=== PATIENT | male | born 1965 | race Hispanic/Latino ===

== ENCOUNTER 2018-10-03 02:36 | Emergency (ER) | payer OTHER ==
--- NOTE | 2018-10-03 08:06 | RAD ---
EXAM: XR Ankle Rt 3 View STANDARD PROVIDED CLINICAL HISTORY: Pain FINDINGS: There is no evidence for fracture or other acute osseous abnormality. Alignment appears anatomic. Nichole nt spaces appear preserved. IMPRESSION: No evidence for an acute osseous abnormality. If there is persistent clinical concern, conservative m anagement and follow-up imaging advised.
== END 2018-10-03 04:03 | disposition home or self-care (01) ==
LOC: ERS 02:36
DX: S93.401A Sprain of unspecified ligament of right ankle, initial encounter (principal); L02.415 Cutaneous abscess of right lower limb; W17.89XA Other fall from one level to another, initial encounter

== ENCOUNTER 2024-11-11 17:32 | Emergency (ER) | payer OTHER ==
[2024-11-11 20:19] LABS: CAUTI Indications for Culture Dysuria,urgency,freq; Glucose, Urine (Dipstick) Normal (Negative); Leukocyte Negative Leu/uL (Negative); Protein, Urine (Dipstick) 200 mg/dL (Neg-Trace); RBC/HPF 0-3 HPF (0-3); Specific Gravity, Urine 1.029 (1.002-1.036); WBC/HPF 0-3 HPF (0-3)
[2024-11-11 20:21] LABS: Bacteria/HPF 1+ HPF (None Seen)
[2024-11-11 20:22] LABS: Urine Culture Reflex No No
[2024-11-11 20:30] LABS: #Basophils 0.06 10x3/uL (0.0-0.2); #Eosinophils 0.09 10x3/uL (0.0-0.7); #Monocytes 0.76 10x3/uL (0.11-0.59); #Neutrophils 6.62 10x3/uL (1.40-6.50); %Basophils 0.6 % (0.0-1.0); %Eosinophils 0.9 % (0.0-10.0); %Lymphocytes 23.5 % (21.0-51.0); %Monocytes 7.6 % (0.0-10.0); %Neutrophils 66.4 % (42.0-75.0); Hematocrit 48.8 % (42.0-52.0); Hemoglobin 15.5 g/dL (14.0-18.0); Mean Corpuscular Hemoglobin 24.7 pg (27.0-31.0); Mean Corpuscular Volume 77.8 fL (78.0-98.0); Platelet Count 309 10x3/uL (130-400); Red Blood Cell (RBC) Count 6.27 mill/uL (4.70-6.10); White Blood Cell (WBC) Count 9.97 10x3/uL (4.8-10.8)
[2024-11-11 20:51] LABS: ALT (SGPT) 17 U/L (Less than 45); AST (SGOT) 16 U/L (11-34); Albumin 3.9 g/dL (3.1-4.5); Alkaline Phosphatase 104 U/L (40-110); Anion Gap 16 mmol/L (10-20); BUN (Urea Nitrogen) 11 mg/dL (8.4-25.7); Bilirubin, Total 0.6 mg/dL (0.3-1.2); Calc. Creatinine Clearance 0 mL/min (70-130); Calcium 10.1 mg/dL (7.8-10.44); Carbon Dioxide 24 mmol/L (22-29); Chloride 101 mmol/L (98-107); Globulin 4.3 g/dL (2.4-3.5); Glucose 143 mg/dL (70-105); Lipase 30 U/L (8-78); Potassium 4.6 mmol/L (3.5-5.1); Sodium 136 mmol/L (136-145)
== END 2024-11-11 21:30 | disposition home or self-care (01) ==
LOC: ERS 17:32
DX: K21.9 Gastro-esophageal reflux disease without esophagitis (principal); R11.2 Nausea with vomiting, unspecified; R10.13 Epigastric pain; E11.9 Type 2 diabetes mellitus without complications; Z79.82 Long term (current) use of aspirin; Z79.4 Long term (current) use of insulin; Z79.899 Other long term (current) drug therapy
CPT/HCPCS: 36415; 80053; 81001; 83690; 85025; 99283

== ENCOUNTER 2025-03-28 13:46 | Outpatient (CLI) | payer OTHER | END 2025-03-28 13:47 | disposition home or self-care (01) | LOC: LABBT 13:46 | PROVIDERS: ATTEND Thoracic Surgery (Cardiothoracic Vascular Surgery) | DX: Z01.818 Encounter for other preprocedural examination (principal); I25.10 Atherosclerotic heart disease of native coronary artery without angina pectoris | CPT/HCPCS: 71046 ==

== ENCOUNTER 2025-03-28 14:00 | Inpatient (IN) | payer OTHER ==
[2025-03-28 14:16] VITALS: BMI 44.2
[2025-03-28 15:03] LABS: #Basophils 0.04 10x3/uL (0.0-0.2); #Eosinophils 0.31 10x3/uL (0.0-0.7); #Monocytes 0.70 10x3/uL (0.11-0.59); #Neutrophils 4.81 10x3/uL (1.40-6.50); %Basophils 0.5 % (0.0-1.0); %Eosinophils 3.8 % (0.0-10.0); %Lymphocytes 28.1 % (21.0-51.0); %Monocytes 8.5 % (0.0-10.0); %Neutrophils 58.3 % (42.0-75.0); Hematocrit 43.9 % (42.0-52.0); Hemoglobin 13.4 g/dL (14.0-18.0); Mean Corpuscular Hemoglobin 24.5 pg (27.0-31.0); Mean Corpuscular Volume 80.1 fL (78.0-98.0); Platelet Count 246 10x3/uL (130-400); Red Blood Cell (RBC) Count 5.48 mill/uL (4.70-6.10); White Blood Cell (WBC) Count 8.25 10x3/uL (4.8-10.8)
[2025-03-28 15:19] LABS: Anion Gap 12 mmol/L (10-20); BUN (Urea Nitrogen) 13 mg/dL (8.4-25.7); Calc. Creatinine Clearance 0 mL/min (70-130); Calcium 9.3 mg/dL (7.8-10.44); Carbon Dioxide 24 mmol/L (22-29); Chloride 104 mmol/L (98-107); Glucose 224 mg/dL (70-105); Potassium 4.3 mmol/L (3.5-5.1); Sodium 136 mmol/L (136-145)
[2025-03-29] MEDS ORDERED: Heparin 10,000 UNITS/1 ML VIAL 30,000 UNITS in Sodium Chloride 0.9% 1,000 ML FS SCH (07:00)
[2025-03-29] MEDS ORDERED: Rocuronium Bromide 10 MG/ML (10ML VIAL) ONE ×4 (07:03→08:30)
[2025-03-29] MEDS ORDERED: Lidocaine 1% PF 5 ML VIAL ONE (07:03)
[2025-03-29] MEDS ORDERED: PROPOFOL 20 ML ONE (07:03)
[2025-03-29] MEDS ORDERED: Calcium Chloride 1 GM/10 ML Abboject SYRINGE ONE (07:48)
[2025-03-29] MEDS ORDERED: PROPOFOL 200 MG/20 ML VIAL ONE (07:48)
[2025-03-29] MEDS ORDERED: Heparin 30,000 units/30 ml VIAL ONE (07:48)
[2025-03-29] MEDS ORDERED: Cardioplegic Soln 1,000 ML BAG ONE (07:48)
[2025-03-29] MEDS ORDERED: PHENYLEPHRINE-NS 100 MCG/ML 10 ML SYRINGE ONE ×2 (07:48→09:21)
[2025-03-29] MEDS ORDERED: Thrombin 5000 UNITS/5 ML VIAL ONE (07:48)
[2025-03-29] MEDS ORDERED: Ondansetron PF 4 MG/2 ML Vial ONE (07:48)
[2025-03-29] MEDS ORDERED: Heparin 5,000 UNITS/ML VIAL ONE (07:48)
[2025-03-29] MEDS ORDERED: fentaNYL PF 100 MCG/2 ML SYRINGE ONE (08:26)
[2025-03-29] MEDS ORDERED: Heparin 10,000 UNITS/ 10 ML VIAL ONE (08:35)
[2025-03-29] MEDS ORDERED: Potassium Chloride 20 MEQ (100 mL) BAG IVPB PRN (12:28)
[2025-03-29] MEDS ORDERED: Nitroglycerin 50 MG/250 ML BOT 250 ML IVPB PRN (12:28)
[2025-03-29] MEDS ORDERED: hydrALAZINE 20 MG/ML VIAL SLOW IVP PRN (12:28)
[2025-03-29] MEDS ORDERED: Bisacodyl 10 MG SUPP PR PRN (12:28)
[2025-03-29] MEDS ORDERED: Acetaminophen 325 MG TAB PO PRN (12:28)
[2025-03-29] MEDS ORDERED: Ondansetron PF 4 MG/2 ML Vial IVP PRN (12:28)
[2025-03-29] MEDS ORDERED: Albumin 5% 12.5 GM (250 mL) BOT IVPB PRN ×2 (12:28)
[2025-03-29 12:30] LABS: Actual Bicarbonate (HCO3a) 22.7 mEq/L (22-28); Base Excess (BEa) -1.7 mEq/L (-2.0 to +3.0); CO2 Tension 37.3 mmHg (35.0-45.0); Calcium, Ionized (arterial) 1.11 mmol/L (1.12-1.30); Hematocrit-ABG 38 % (42.0-52.0); Hemoglobin (Hb) 12.9 g/dL (14.0-18.0); O2 Tension (PaO2), arterial 62.7 mmHg (80.0-100.0); Potassium - ABG Lab 3.90 mmol/L (3.70-5.30); pH, Arterial 7.402 (7.35-7.45)
[2025-03-29 12:32] LABS: ALV-art Gradient 175.875 mmHg (0-20); Puncture Site Arterial Line
[2025-03-29] MEDS ORDERED: Norepinephrine 8 MG/0.9% NS 250 ML IVPB PRN (12:36)
[2025-03-29] MEDS ORDERED: Glucagon 1 MG/ML KIT SC PRN (12:45)
[2025-03-29] MEDS ORDERED: Dextrose 50% Abboject 50 ML SYRINGE SLOW IVP PRN (12:45)
[2025-03-29 12:48] LABS: #Basophils 0.07 10x3/uL (0.0-0.2); #Eosinophils 0.24 10x3/uL (0.0-0.7); #Monocytes 1.22 10x3/uL (0.11-0.59); #Neutrophils 11.81 10x3/uL (1.40-6.50); %Basophils 0.4 % (0.0-1.0); %Eosinophils 1.5 % (0.0-10.0); %Lymphocytes 17.3 % (21.0-51.0); %Monocytes 7.4 % (0.0-10.0); %Neutrophils 71.6 % (42.0-75.0); Hematocrit 38.3 % (42.0-52.0); Hemoglobin 11.8 g/dL (14.0-18.0); Mean Corpuscular Hemoglobin 24.5 pg (27.0-31.0); Mean Corpuscular Volume 79.6 fL (78.0-98.0); Platelet Count 208 10x3/uL (130-400); Red Blood Cell (RBC) Count 4.81 mill/uL (4.70-6.10); White Blood Cell (WBC) Count 16.50 10x3/uL (4.8-10.8)
[2025-03-29 13:01] LABS: INR-International Normal Ratio 1.4; Prothrombin Time 17.1 sec (12.0-14.7)
[2025-03-29 13:02] LABS: PTT 39.2 sec (22.9-36.1)
[2025-03-29 13:09] LABS: Anion Gap 11 mmol/L (10-20); BUN (Urea Nitrogen) 13 mg/dL (8.4-25.7); Calc. Creatinine Clearance 247 mL/min (70-130); Calcium 8.1 mg/dL (7.8-10.44); Carbon Dioxide 21 mmol/L (22-29); Chloride 110 mmol/L (98-107); Glucose 155 mg/dL (70-105); Potassium 4.1 mmol/L (3.5-5.1); Sodium 138 mmol/L (136-145)
[2025-03-29] MEDS: D5 1/2 NS w/20 mEq KCL 1,000 ML IV SCH (13:11)
[2025-03-29] MEDS: Ketorolac Tromethamine 30 MG (1 mL) VIAL IVP SCH ×2 (13:13→17:42)
[2025-03-29] MEDS: Magnesium 2 GM/50 ML(in water) 2 GM in Premix 1 BAG IVPB SCH (13:20)
[2025-03-29 13:29] LABS: Cardiac Risk 4.9 (Less than 4.5); Cholesterol 123.0 mg/dl (< 200 Desired); HDL Cholesterol 25.0 mg/dL (>60 Neg Risk); LDL Cholesterol, Calculated 81.0 mg/dL; Triglycerides 86.0 mg/dL (Less than 150)
[2025-03-29 14:33] LABS: Actual Bicarbonate (HCO3a) 20.8 mEq/L (22-28); Base Excess (BEa) -4.1 mEq/L (-2.0 to +3.0); CO2 Tension 37.8 mmHg (35.0-45.0); Calcium, Ionized (arterial) 1.12 mmol/L (1.12-1.30); Hematocrit-ABG 39 % (42.0-52.0); Hemoglobin (Hb) 13.4 g/dL (14.0-18.0); Potassium - ABG Lab 4.00 mmol/L (3.70-5.30); pH, Arterial 7.359 (7.35-7.45)
[2025-03-29] MEDS: Gabapentin 300 MG CAP PO SCH (14:34)
[2025-03-29 14:44] LABS: O2 Tension (PaO2), arterial 59.5 mmHg (80.0-100.0); Puncture Site ALINE
[2025-03-29] MEDS: INSULIN REGULAR IN 0.9 % NACL 100 UNITS in Premix 1 BAG IVPB SCH (16:47)
[2025-03-29] MEDS: Post-Op Insulin Drip Protocol IVPB ONE (17:30)
[2025-03-29 18:23] LABS: Hematocrit 38.9 % (42.0-52.0); Hemoglobin 12.2 g/dL (14.0-18.0)
[2025-03-29 18:27] LABS: Potassium 4.4 mmol/L (3.5-5.1)
[2025-03-29 18:33] LABS: Actual Bicarbonate (HCO3a) 21.9 mEq/L (22-28); Base Excess (BEa) -2.2 mEq/L (-2.0 to +3.0); CO2 Tension 35.4 mmHg (35.0-45.0); Calcium, Ionized (arterial) 1.12 mmol/L (1.12-1.30); Hematocrit-ABG 39 % (42.0-52.0); Hemoglobin (Hb) 13.4 g/dL (14.0-18.0); O2 Tension (PaO2), arterial 65.2 mmHg (80.0-100.0); Potassium - ABG Lab 4.23 mmol/L (3.70-5.30); pH, Arterial 7.409 (7.35-7.45)
[2025-03-29 18:34] LABS: Puncture Site LINE
[2025-03-29] MEDS: Famotidine/PF 20 mg/2ml Vial SLOW IVP SCH (19:58)
[2025-03-29] MEDS: Guaifenesin DM 100-10/5 ML UDCUP PO PRN (23:28)
[2025-03-30 03:48] LABS: #Basophils 0.03 10x3/uL (0.0-0.2); #Eosinophils Less than 0.03 10x3/uL (0.0-0.7); #Monocytes 1.25 10x3/uL (0.11-0.59); #Neutrophils 11.65 10x3/uL (1.40-6.50); %Basophils 0.2 % (0.0-1.0); %Eosinophils 0.0 % (0.0-10.0); %Lymphocytes 8.8 % (21.0-51.0); %Monocytes 8.8 % (0.0-10.0); %Neutrophils 81.6 % (42.0-75.0); Hematocrit 36.8 % (42.0-52.0); Hemoglobin 11.1 g/dL (14.0-18.0); Mean Corpuscular Hemoglobin 24.6 pg (27.0-31.0); Mean Corpuscular Volume 81.4 fL (78.0-98.0); Platelet Count 224 10x3/uL (130-400); Red Blood Cell (RBC) Count 4.52 mill/uL (4.70-6.10); White Blood Cell (WBC) Count 14.27 10x3/uL (4.8-10.8)
[2025-03-30 04:13] LABS: Anion Gap 13 mmol/L (10-20); BUN (Urea Nitrogen) 16 mg/dL (8.4-25.7); Calc. Creatinine Clearance 186 mL/min (70-130); Calcium 8.1 mg/dL (7.8-10.44); Carbon Dioxide 24 mmol/L (22-29); Chloride 106 mmol/L (98-107); Glucose 110 mg/dL (70-105); Magnesium 2.1 mg/dL (1.6-2.6); Potassium 4.4 mmol/L (3.5-5.1); Sodium 139 mmol/L (136-145)
[2025-03-30] MEDS: Gentamicin Sulfate 80 MG in Premix 1 BAG IVPB SCH (06:39)
[2025-03-30] MEDS: Pantoprazole 40 MG DR.TAB PO SCH (09:14)
[2025-03-30] MEDS: Magnesium 2 GM/50 ML(in water) 2 GM in Premix 1 BAG IVPB SCH (09:15)
[2025-03-30] MEDS: Aspirin 325 MG TAB PO SCH (09:15)
[2025-03-30] MEDS: Enoxaparin 40 MG (0.4 mL) SYRINGE SC SCH (09:16)
[2025-03-30] MEDS: PNEUMOC 20-VAL CONJ-DIP CRM/PF 0.5 ML SYRINGE IM ONE (10:42)
[2025-03-30] MEDS: FLU (Fluarix Triv) 25-26 (6MOS UP)/PF 45 MCG/0.5 ML Syringe IM ONE (10:44)
[2025-03-30] MEDS: Mag-Al 1200 mg/1200 mg/30 ML UDCUP PO PRN (11:46)
[2025-03-30 13:54] VITALS: BMI 44.2
[2025-03-30] MEDS: Mupirocin 1 GM TUBE TP SCH (20:50)
[2025-03-30] MEDS: Transdermal Patch Removal LIDOCAINE TOP SCH (21:22)
[2025-03-31 04:01] LABS: #Basophils 0.05 10x3/uL (0.0-0.2); #Eosinophils 0.06 10x3/uL (0.0-0.7); #Monocytes 2.20 10x3/uL (0.11-0.59); #Neutrophils 15.16 10x3/uL (1.40-6.50); %Basophils 0.2 % (0.0-1.0); %Eosinophils 0.3 % (0.0-10.0); %Lymphocytes 13.1 % (21.0-51.0); %Monocytes 10.8 % (0.0-10.0); %Neutrophils 74.6 % (42.0-75.0); Hematocrit 36.8 % (42.0-52.0); Hemoglobin 11.5 g/dL (14.0-18.0); Mean Corpuscular Hemoglobin 25.2 pg (27.0-31.0); Mean Corpuscular Volume 80.7 fL (78.0-98.0); Platelet Count 226 10x3/uL (130-400); Red Blood Cell (RBC) Count 4.56 mill/uL (4.70-6.10); White Blood Cell (WBC) Count 20.35 10x3/uL (4.8-10.8)
[2025-03-31 04:24] LABS: Anion Gap 13 mmol/L (10-20); BUN (Urea Nitrogen) 33 mg/dL (8.4-25.7); Calc. Creatinine Clearance 143 mL/min (70-130); Calcium 8.3 mg/dL (7.8-10.44); Carbon Dioxide 24 mmol/L (22-29); Chloride 102 mmol/L (98-107); Glucose 183 mg/dL (70-105); Potassium 4.7 mmol/L (3.5-5.1); Sodium 134 mmol/L (136-145)
[2025-03-31] MEDS ORDERED: Nitroglycerin 0.4 MG TAB (25 Tab Bottle) SL PRN (09:55)
[2025-03-31] MEDS ORDERED: Mineral Oil ENEMA PR PRN (09:55)
[2025-03-31] MEDS ORDERED: diphenhydrAMINE 25 MG CAP PO PRN (09:55)
[2025-03-31] MEDS ORDERED: Milk Of Magnesia 30 ML UDCUP PO PRN (09:55)
[2025-03-31] MEDS ORDERED: Artificial Tear Ophth Sol 15 ML BOT EA EYE PRN (09:55)
[2025-03-31] MEDS: Furosemide 40 MG TAB PO SCH (10:42)
[2025-03-31] MEDS: ALPRAZolam 0.5 MG TAB PO PRN (10:45)
[2025-03-31] MEDS: Benzonatate 100 MG CAP PO SCH (15:01)
[2025-04-02] MEDS: Guaifenesin DM 100-10/5 ML UDCUP PO PRN (01:13)
[2025-04-02] MEDS: Amiodarone 200 MG TAB PO SCH (18:14)
[2025-04-02] MEDS: Bumetanide 1 MG/4 ML VIAL IVP SCH (18:15)
[2025-04-02 18:17] LABS: ALT (SGPT) 26 U/L (Less than 45); AST (SGOT) 40 U/L (11-34); Albumin 3.2 g/dL (3.1-4.5); Alkaline Phosphatase 112 U/L (40-110); Anion Gap 19 mmol/L (10-20); BUN (Urea Nitrogen) 32 mg/dL (8.4-25.7); Bilirubin, Total 0.7 mg/dL (0.3-1.2); Calc. Creatinine Clearance 170 mL/min (70-130); Calcium 9.2 mg/dL (7.8-10.44); Carbon Dioxide 23 mmol/L (22-29); Chloride 99 mmol/L (98-107); Globulin 3.6 g/dL (2.4-3.5); Glucose 192 mg/dL (70-105); Magnesium 2.0 mg/dL (1.6-2.6); Potassium 4.1 mmol/L (3.5-5.1); Sodium 137 mmol/L (136-145)
[2025-04-02] MEDS: Melatonin 3 MG TAB PO PRN (22:46)
[2025-04-03] MEDS: Bumetanide 1 MG/4 ML VIAL IVP SCH (06:22)
[2025-04-03] MEDS: Amiodarone 200 MG TAB PO SCH (09:15)
[2025-04-03 11:11] VITALS: BP 90/60; TEMP 97.9
== END 2025-04-03 16:14 | disposition home or self-care (01) | DRG 236 ==
LOC: SURG A 03-29 06:42 → CCU 03-29 12:19 → PCU 03-31 15:41
PROVIDERS: ADMIT Thoracic Surgery (Cardiothoracic Vascular Surgery); ATTEND Thoracic Surgery (Cardiothoracic Vascular Surgery)
PROC: 02100Z9 Bypass Coronary Artery, One Artery from Left Internal Mammary, Open Approach (ICD-10-PCS; principal; 2025-03-29)
PROC: 021109W Bypass Coronary Artery, Two Arteries from Aorta with Autologous Venous Tissue, Open Approach (ICD-10-PCS; 2025-03-29)
PROC: 06BQ0ZZ Excision of Left Saphenous Vein, Open Approach (ICD-10-PCS; 2025-03-29)
PROC: 02L70CK Occlusion of Left Atrial Appendage with Extraluminal Device, Open Approach (ICD-10-PCS; 2025-03-29)
PROC: 5A1935Z Respiratory Ventilation, Less than 24 Consecutive Hours (ICD-10-PCS; 2025-03-29)
PROC: 3E03329 Introduction of Other Anti-infective into Peripheral Vein, Percutaneous Approach (ICD-10-PCS; 2025-03-30)
PROC: 3E02340 Introduction of Influenza Vaccine into Muscle, Percutaneous Approach (ICD-10-PCS; 2025-03-30)
PROC: 3E0234Z Introduction of Serum, Toxoid and Vaccine into Muscle, Percutaneous Approach (ICD-10-PCS; 2025-03-30)
DX: I25.10 Atherosclerotic heart disease of native coronary artery without angina pectoris (principal); I97.190 Other postprocedural cardiac functional disturbances following cardiac surgery; I50.20 Unspecified systolic (congestive) heart failure; E66.01 Morbid (severe) obesity due to excess calories; E78.5 Hyperlipidemia, unspecified; E11.9 Type 2 diabetes mellitus without complications; F41.9 Anxiety disorder, unspecified; Z79.899 Other long term (current) drug therapy; Z98.890 Other specified postprocedural states; I49.3 Ventricular premature depolarization; I11.0 Hypertensive heart disease with heart failure; Z23 Encounter for immunization
CPT/HCPCS: 36415; 36416; 36430; 71045; 80048; 80053; 80061; 82805; 83735; 84100; 84443; 85025; 85610; 85730; 86850; 86900; 86901; 90471; 90656; 90677; 93005; 93010; 93798; 94002; A4311; A4648; C1751; C1889; G0009; J1100; J1308; J1580; J1644; J1650; J1815; J1885; J2250; J2405; J2440; J2704; J3010; J3373; J3475; J3480; J3490; S0017